=== PATIENT | female | born 1960 | race Caucasian/White ===

== ENCOUNTER 2020-08-30 12:51 | Outpatient (CLI) | payer OTHER, SELFPAY ==
[2020-08-30 13:13] LABS: Basophils Percent Auto 0.6 % (0.2-1.2); Eosinophils Absolute Auto 0.1 K/mm3 (0-0.3); Eosinophils Percent Auto 2.1 % (0-4.4); Hematocrit 43.2 % (37.0-47.0); Hemoglobin 14.1 g/dL (12.0-15.0); Immature Granulocyte Absolute 0.02 K/mm3 (0.00-0.031); Immature Granulocyte Percent A 0.3 % (0-0.5); Lymphocytes Absolute Auto 1.87 K/mm3 (0.9-3.2); Lymphocytes Percent Auto 30.3 % (18.3-44.2); Mean Corpuscular HGB Conc 32.6 g/dl (32-36); Mean Corpuscular Hemoglobin 31.4 pg (26-34); Mean Corpuscular Volume 96.2 fl (80-100); Mean Platelet Volume 9.5 fl (7.4-10.4); Monocytes Absolute Auto 0.5 K/mm3 (0.1-0.6); Monocytes Percent Auto 7.4 % (2.6-8.5); Neutrophils Absolute Auto 3.7 K/mm3 (1.3-6.7); Neutrophils Percent Auto 59.3 % (45.5-73.1); Platelet Count Result 252 k/mm3 (150-375); Red Blood Count 4.49 M/mm3 (4.2-5.4); Red Cell Distribution Width 12.7 % (11.5-14.5); White Blood Count 6.2 K/mm3 (4.5-10.0)
[2020-08-30 13:24] LABS: Alanine Aminotransferase 27 U/L (4-35); Albumin Level 4.3 g/dL (3.5-5.1); Alkaline Phosphatase 90 U/L (38-126); Anion Gap 9 mmol/L (8-16); Aspartate Amino Transferase 34 U/L (14-36); Bilirubin,Total 0.5 mg/dL (0.2-1.3); Blood Urea Nitrogen 12 mg/dL (7-17); Calcium 9.1 mg/dL (8.4-10.2); Carbon Dioxide 27 mmol/L (22-30); Chloride 106 mmol/L (98-107); Cholesterol 238 mg/dL (0-200); Estimated Glomerular Filt Rate 46; Glucose 94 mg/dL (65-105); HDL Direct 71 mg/dL; Potassium 4.1 mmol/L (3.4-5.0); Sodium 142 mmol/L (137-145); Triglycerides 130 mg/dL (<150)
[2020-08-30 13:35] LABS: LDL Cholesterol Direct 118 mg/dL
== END 2020-08-30 12:52 | disposition home or self-care (01) ==
LOC: ANHLAB 12:56
PROVIDERS: PCP Family Medicine; Visit Provider Family Medicine
DX: Z13.1 Encounter for screening for diabetes mellitus (principal); Z13.0 Encounter for screening for diseases of the blood and blood-forming organs and certain disorders involving the immune mechanism; Z13.220 Encounter for screening for lipoid disorders
CPT/HCPCS: 36415; 80053; 80061; 84443; 85025

== ENCOUNTER 2023-01-01 00:53 | Day surgery (SDC) | payer OTHER, SELFPAY ==
--- NOTE | 2022-12-31 13:23 | PM.HPGS ---
History of Present Illness History of Present Illness Consent: Risks, benefits, and alternatives have been discussed and questions answered. Patient agrees to proceed with procedure. Chief complaint: GERD; Constipation Narrative: Elsy Mcbride is a 62 year old female With chronic symptoms of gastrointestinal reflux. She often finds that she needs to clear her throat. Occasionally it is difficult to get pills to go past her throat. She denies dysphagia for solid food. She is also referred for colon cancer screening. Review of Systems Review of Systems: All systems reviewed & are unremarkable except as noted in HPI and below PMFSH Past Medical History Medical History Anxiety Constipation, chronic Depression GERD without esophagitis Hyperglycemia Hyperlipidemia Insomnia Partial blindness Pseudoxanthoma elasticum Surgical History Surgical History H/O eye surgery History of hemorrhoidectomy Family History Family History Sibling Diabetes mellitus Father Family history of cardiovascular disease Grandparent Family history of malignant neoplasm Mother Family history of malignant neoplasm Social History Social History Years smoked: 50 Smoking status: Current every day smoker Tobacco type: cigarettes Second hand tobacco smoke exposure: Yes Alcohol intake: never Substance use: never Substance use type: does not use Lack of Transportation: No Lack of Food: Never True Current Housing: I Have Housing Concerned About Future Housing: No Difficulty Paying Gas/Electric Bills: No Difficulty Paying for Meds: No Currently Unemployed: No Education: High School Diploma/GED Difficulty w/ Childcare or Family Care: No Living arrangements: with family Occupation/Education: other Gender identity (if verbalized by the patient): Female Sexual Orientation (if Verbalized by the Patient): Straight or Heterosexual Spiritual care concerns: No Agree to blood products: Yes Meds Home Medications and Allergies Home Medications Medication Instructions Recorded Confirmed Type alprazolam 0.25 mg tablet (Xanax) 0.25 mg PO BID PRN anxiety #10 tabs 08/30/20 12/25/22 Rx timolol maleate 0.5 % once daily 1 drp EACH EYE DAILY 08/30/20 12/25/22 History eye drops (Istalol) zolpidem 10 mg tablet 10 mg PO QHS PRN insomnia #90 tabs 04/28/21 12/25/22 Rx hydroxyzine HCl 25 mg tablet 25 mg PO TID PRN anxiety #90 tabs 04/24/22 12/25/22 Rx oxybutynin chloride 10 mg See Rx Instructions .Route 11/13/22 12/25/22 Rx tablet,extended release 24 hr .COMPLEX #90 tabs travoprost 0.004 % eye drops 1 drp EACH EYE QPM 11/13/22 12/25/22 History (Travatan Z) bupropion HCl 200 mg tablet,12 hr See Rx Instructions .Route 12/14/22 12/25/22 Rx sustained-release .COMPLEX #60 tabs quetiapine 200 mg tablet,extended See Rx Instructions .Route 12/31/22 01/01/23 Rx release 24 hr .COMPLEX #60 tabs Allergies Allergy/AdvReac Type Severity Reaction Status Date / Time No Known Allergies Allergy Verified 01/01/23 08:45 Exam Const: General: alert Orientation/consciousness: patient oriented x3 Resp: Auscultation: clear to auscultation bilaterally Cardio: Rhythm: regular rhythm GI: GI Palp: Yes Soft to palpation and No Tenderness to palpation present (GI) Neuro: General: patient oriented x3 Assessment and Plan Assessment and plan (1) GERD without esophagitis: Code(s): K21.9 - Gastro-esophageal reflux disease without esophagitis Status: Acute Assessment and Plan: EGD with possible biopsy or dilatation or cautery. (2) Colon cancer screening: Code(s): Z12.11 - Encounter for screening for malignant neoplasm of colon Status: Acute Assessment and Plan
[2023-01-01 08:47] VITALS: BP 127/75; PULSE 82; RESP 18; TEMP 36.1; O2SAT 98
[2023-01-01] MEDS: LACTATED RINGERS 1,000 ML 150 ML IV CONT (08:57)
--- NOTE | 2023-01-01 09:14 | WPDANESEPPF ---
Anes - Initial Pre Proc Eval Procedure: Operation Date: 01/01/23 09:30 Proposed Procedures p Esophagogastroduodenoscopy & Colonoscopy - Brown Gilliam MD Date/Time: 01/01/23 09:14 Surgeon: Brown Gilliam MD Pre Op Diagnosis: GERD; Constipation Patient Data Age: 62 Gender: F Height: 1.7 m Weight: 81.6 kg Last Vital Signs Temp 97 F L 01/01/23 08:47 Pulse 82 01/01/23 08:47 Resp 18 01/01/23 08:47 BP 127/75 01/01/23 08:47 Pulse Ox 98 01/01/23 08:47 O2 Del Method Room Air 01/01/23 08:47 Allergies Allergy/AdvReac Type Severity Reaction Status Date / Time No Known Allergies Allergy Verified 01/01/23 08:45 Home Medications Medication Instructions Recorded Confirmed Type alprazolam 0.25 mg tablet (Xanax) 0.25 mg PO BID PRN anxiety #10 tabs 08/30/20 12/25/22 Rx timolol maleate 0.5 % once daily 1 drp EACH EYE DAILY 08/30/20 12/25/22 History eye drops (Istalol) zolpidem 10 mg tablet 10 mg PO QHS PRN insomnia #90 tabs 04/28/21 12/25/22 Rx hydroxyzine HCl 25 mg tablet 25 mg PO TID PRN anxiety #90 tabs 04/24/22 12/25/22 Rx oxybutynin chloride 10 mg See Rx Instructions .Route 11/13/22 12/25/22 Rx tablet,extended release 24 hr .COMPLEX #90 tabs travoprost 0.004 % eye drops 1 drp EACH EYE QPM 11/13/22 12/25/22 History (Travatan Z) bupropion HCl 200 mg tablet,12 hr See Rx Instructions .Route 12/14/22 12/25/22 Rx sustained-release .COMPLEX #60 tabs quetiapine 200 mg tablet,extended See Rx Instructions .Route 12/31/22 01/01/23 Rx release 24 hr .COMPLEX #60 tabs Patient hx anesthesia problems: none Family hx anesthesia problems: none Results Review: All pre-operative results and documents have been reviewed as part of the pre-operative evaluation. COUNT INCLUDES THE [facility] Past Medical History Medical History Anxiety Constipation, chronic Depression GERD without esophagitis Hyperglycemia Hyperlipidemia Insomnia Partial blindness Pseudoxanthoma elasticum Surgical History Surgical History H/O eye surgery History of hemorrhoidectomy Family History Family History Sibling Diabetes mellitus Father Family history of cardiovascular disease Grandparent Family history of malignant neoplasm Mother Family history of malignant neoplasm Social History Social History Years smoked: 50 Smoking status: Current every day smoker Tobacco type: cigarettes Second hand tobacco smoke exposure: Yes Alcohol intake: never Substance use: never Substance use type: does not use Lack of Transportation: No Lack of Food: Never True Current Housing: I Have Housing Concerned About Future Housing: No Difficulty Paying Gas/Electric Bills: No Difficulty Paying for Meds: No Currently Unemployed: No Education: High School Diploma/GED Difficulty w/ Childcare or Family Care: No Living arrangements: with family Occupation/Education: other Gender identity (if verbalized by the patient): Female Sexual Orientation (if Verbalized by the Patient): Straight or Heterosexual Spiritual care concerns: No Agree to blood products: Yes Anes - Eval Final PreProcedure Day of Procedure 01/01/23 09:14 Patient weight: normal Heart: regular rate and rhythm Lungs: clear to auscultation Airway: Mallampati scale class II Neurological: alert and oriented Last oral intake: >/= 8 hours ASA classification: II Emergent: no Anesthetic plan: proceed Anesthesia type and monitoring: general GIVS and standard monitoring Results Review: All pre-operative results and documents have been reviewed as part of the pre-operative evaluation. Informed Consent: The patient's anesthetic plan and its attendant risks and benefits were discussed with the patient/family/POA. Questions were
--- NOTE | 2023-01-01 10:10 | SUR.OPER ---
EGD END TIME: 948 COLON START TIME: 955
[2023-01-01 10:18] VITALS: BP 149/95; PULSE 73; RESP 29; O2SAT 98
[2023-01-01 10:28] VITALS: BP 136/89; PULSE 89; RESP 24; O2SAT 100
[2023-01-01 10:33] VITALS: BP 136/89; PULSE 87; RESP 23; O2SAT 100
== END 2023-01-01 10:48 | disposition home or self-care (01) ==
PROVIDERS: PCP Physician Assistant Medical; Visit Provider Internal Medicine Gastroenterology
PROC: 0DJ08ZZ Inspection of Upper Intestinal Tract, Via Natural or Artificial Opening Endoscopic (ICD-10-PCS; CPT 43235; principal; 2023-01-01 09:30)
DX: Z12.11 Encounter for screening for malignant neoplasm of colon (principal); K64.8 Other hemorrhoids; K63.5 Polyp of colon; K22.2 Esophageal obstruction; K21.00 Gastro-esophageal reflux disease with esophagitis, without bleeding; K29.70 Gastritis, unspecified, without bleeding; K25.9 Gastric ulcer, unspecified as acute or chronic, without hemorrhage or perforation; K59.09 Other constipation; E78.5 Hyperlipidemia, unspecified; F41.9 Anxiety disorder, unspecified; F32.A Depression, unspecified; F17.210 Nicotine dependence, cigarettes, uncomplicated
CPT/HCPCS: 45385; 43249; 43239; 87081; 88305; C1726; J2704; J7120

== ENCOUNTER 2023-05-03 10:37 | Emergency (ER) | payer OTHER, SELFPAY ==
--- NOTE | ~2023-05-03 | XR_ITS ---
EXAMINATION: XR chest 2V DATE: 05/03/2023 11:05 INDICATION: Shortness of breath, cough and congestion TECHNIQUE: PA and lateral views of the chest were obtained. COMPARISON: None FINDINGS: The lungs are clear with no focal airspace opacities, pulmonary edema, pleural effusion or pneumothor ax. The cardiomediastinal silhouette is normal. Visualized bones and soft tissues are unremarkable. IMPRESSION: 1. No acute cardiopulmonary disease. Reviewed, dictated and finalized at location A. [employer] PROC[employer]
[2023-05-03 10:47] VITALS: BP 118/70; PULSE 71; RESP 18; TEMP 36.3; O2SAT 98
--- NOTE | 2023-05-03 11:10 | ED.URI ---
HPI - URI/Sore Throat General Chief Complaint: Upper Respiratory Infection Stated Complaint: Congestion, Cough, Weakness Time Seen by Provider: 05/03/23 10:55 Source: patient Mode of arrival: ambulatory Limitations: no limitations History of Present Illness HPI Narrative: Elsy is a 62-year-old female patient presenting to the clinic today with complaints of cough, congestion, and feeling weak. She reports the symptoms have been going on for 5 days. Denies any fever chills but does have chest congestion and a nonproductive cough. MD elicited complaint: sore throat and nasal congestion Related Data Home Medications Medication Instructions Recorded Confirmed timolol maleate 0.5 % once daily 1 drp EACH EYE DAILY 08/30/20 05/03/23 eye drops (Istalol) travoprost 0.004 % eye drops 1 drp EACH EYE QPM 11/13/22 05/03/23 (Travatan Z) Allergies Allergy/AdvReac Type Severity Reaction Status Date / Time No Known Allergies Allergy Verified 05/03/23 10:41 Review of Systems Review of Systems: Pertinent positives per HPI. Patient denies any fever, chills, rash, headache, visual changes, dizziness, chest pain, palpitations, nausea, vomiting, diarrhea, constipation, abdominal pain, or any urinary issues. [facility] Past Medical History Medical History (Updated 05/03/23 @ 11:14 by Waqar Cornejo APRN) Anxiety Depression GERD without esophagitis Hyperglycemia Hyperlipidemia Insomnia Partial blindness Pseudoxanthoma elasticum Surgical History Surgical History H/O eye surgery History of hemorrhoidectomy Family History Family History Sibling Diabetes mellitus Father Family history of cardiovascular disease Grandparent Family history of malignant neoplasm Mother Family history of malignant neoplasm Social History Social History Years smoked: 50 Smoking status: Current every day smoker Tobacco type: cigarettes Second hand tobacco smoke exposure: Yes Alcohol intake: never Substance use: never Substance use type: does not use Lack of Transportation: No Lack of Food: Never True Current Housing: I Have Housing Concerned About Future Housing: No Difficulty Paying Gas/Electric Bills: No Difficulty Paying for Meds: No Currently Unemployed: No Education: High School Diploma/GED Difficulty w/ Childcare or Family Care: No Living arrangements: with family Occupation/Education: other Gender identity (if verbalized by the patient): Female Sexual Orientation (if Verbalized by the Patient): Straight or Heterosexual Spiritual care concerns: No Agree to blood products: Yes Comments At the time of my signature, I reviewed and agree with the nursing past medical, surgical, social, and family history. There is no relevant family history pertinent to the patient complaint. Exam Narrative: General: Well-developed, well nourished, in no apparent distress Head: Normocephalic, atraumatic Eyes: Pupils equally round and reactive to light bilaterally, EOM intact, sclera and conjunctive clear, no discharge, lids normal Ears: TMs intact and clear, ear canals clear, no drainage, grossly hearing normal. Nose: Nares patent, clear nasal discharge, no inflammation, no sinus tenderness. Mouth: Oral pharynx without lesions or masses, good dentition, MMM. Neck: Supple, trachea midline, no enlargement of anterior or posterior cervical nodes, no thyroid masses or goiter palpable. Cardio: Regular rate and rhythm, s1 and s2 normal, no murmur appreciated. Resp: Slightly coarse and congested, no rhonchi, rales, wheezing or rubs Course Course Emergency Course: Portions of this record may have been created with voice recognition software. Level of Care: Express Care Visit Vital Signs Vital signs: Vital Signs
== END 2023-05-03 11:18 | disposition home or self-care (01) ==
PROVIDERS: Emergency Provider Nurse Practitioner Family; PCP Physician Assistant Medical
DX: J06.9 Acute upper respiratory infection, unspecified (principal); F17.210 Nicotine dependence, cigarettes, uncomplicated; K21.9 Gastro-esophageal reflux disease without esophagitis; E78.5 Hyperlipidemia, unspecified; F41.9 Anxiety disorder, unspecified; F32.A Depression, unspecified
CPT/HCPCS: 71046; 99213; G0463